=== PATIENT | female | born 1980 | race American Indian/Alaskan Native ===

== ENCOUNTER 2017-01-27 21:28 | Emergency (ER) | payer MEDICAID ==
[~2017-01-27] VITALS: Ht 154.9 cm; Wt 82.0 kg
[~2017-01-27 21:28] MED LIST: CALC-666 PO; DOCU-30 PO; ERGO500017 PO; FERR325T20 PO; GABA100C8 PO; LEVE100020 PO; LEVE500T53 PO; MULT-750 PO
[2017-01-27] MEDS ORDERED: ONDANSETRON 2MG/ML, 2ML ONE (21:48)
[2017-01-27] MEDS ORDERED: SODIUM CHLORIDE 0.9% 1,000ML IVBOLUS ONE (22:00)
[2017-01-27] MEDS ORDERED: PLEASE ENTER HEIGHT AND WEIGHT MC SCH (22:00)
[2017-01-27] MEDS ORDERED: ONDANSETRON 2MG/ML, 2ML IVPush ONE (22:00)
[2017-01-27] MEDS ORDERED: SODIUM CHLORIDE FLUSH 10ML SYR IVF ONE (22:00)
[2017-01-27 22:11] LABS: HEMOGLOBIN 9.2 g/dL (11.7-16.4)
[2017-01-27 22:24] LABS: ASPARTATE AMINO TRANSFERASE 42 U/L (15-37); BLOOD UREA NITROGEN 14 mg/dL (7-18)
[2017-01-27 22:35] LABS: DAU SCREEN DISCLAIMER
[2017-01-27 23:25] VITALS: BP 105/71
== END 2017-01-27 23:31 | disposition home or self-care (01) ==
LOC: ED 22:54
DX: G40.309 Generalized idiopathic epilepsy and epileptic syndromes, not intractable, without status epilepticus (principal)
CPT/HCPCS: 36415; 80053; 80307; 81003; 84703; 85025; 93005; 96361; 96374; 99285; J2405; J7030

== ENCOUNTER 2017-05-26 22:59 | Emergency (ER) | payer MEDICAID ==
[~2017-05-26] VITALS: Ht 157.5 cm; Wt 80.0 kg
[~2017-05-26 22:59] MED LIST changes: +GABA-826 PO; -GABA100C8 PO
[2017-05-26] MEDS ORDERED: SODIUM CHLORIDE 0.9% 1,000 ML IV ONE (23:03)
[2017-05-26] MEDS ORDERED: SODIUM CHLORIDE FLUSH 10ML SYR IVF ONE (23:30)
[2017-05-26] MEDS ORDERED: LEVETIRACETAM 500 MG in SODIUM CHLORIDE 0.9% 100 ML IV ONE (23:30)
[2017-05-26 23:34] LABS: HEMATOCRIT 38.5 % (34.6-47.8); HEMOGLOBIN 12.6 g/dL (11.7-16.4); WHITE BLOOD COUNT 7.7 x10^3/uL (3.4-10)
[2017-05-26 23:46] LABS: ASPARTATE AMINO TRANSFERASE 33 U/L (15-37); BLOOD UREA NITROGEN 12 mg/dL (7-18)
[2017-05-27 00:50] VITALS: BP 105/75
== END 2017-05-27 00:53 | disposition home or self-care (01) ==
LOC: ED 23:16
DX: G40.319 Generalized idiopathic epilepsy and epileptic syndromes, intractable, without status epilepticus (principal)
CPT/HCPCS: 36415; 70450; 80053; 80307; 84703; 85025; 93005; 96365; 99285; J1953; J7030